=== PATIENT | male | born 1970 | race Caucasian/White ===

== ENCOUNTER 2017-01-01 10:46 | Observation (INO) | payer OTHER ==
[2016-12-28 21:27] LABS: BASOPHILS 0.5 %; BASOPHILS ABSOLUTE 0.03 10/3/uL (0.0-0.16); EOSINOPHILS 3.5 %; EOSINOPHILS ABSOLUTE 0.21 10/3/uL (0.0-0.53); HEMATOCRIT 44.4 % (40.0-51.0); HEMOGLOBIN 15.3 g/dL (13.6-17.8); IMMATURE GRANULOCYTES 0.2 %; IMMATURE GRANULOCYTES ABSOLUTE 0.01 10/3/uL (0.0-0.11); LYMPHOCYTES 25.2 %; MEAN CORPUS HGB CONC 34.5 g/dL (32.0-36.0); MEAN CORPUSCULAR HEMOGLOB 30.8 pg (26.0-34.0); MEAN CORPUSCULAR VOLUME 89.3 fL (80-100); MEAN PLATELET VOLUME 10.7 fL (9.2-13.0); MONOCYTES 9.2 %; MONOCYTES ABSOLUTE 0.55 10/3/uL (0.21-1.20); NEUTROPHILS 61.4 %; NEUTROPHILS ABSOLUTE 3.66 10/3/uL (2.02-8.40); PLATELET COUNT 235 10/3/uL (150-400); RED CELL COUNT 4.97 10/6/uL (4.7-6.1)
[2016-12-28 21:32] LABS: MANUAL DIFF NO %
[2016-12-28 21:34] LABS: PARTIAL THROMBO TIME 28.5 SEC (22.5-37.2)
[2016-12-28 21:36] LABS: BUN (BLOOD UREA NITROGEN) 14 MG/DL (6-23); CALCIUM, SERUM 8.5 MG/DL (8.5-10.4); CHLORIDE, SERUM 108 MMOL/L (96-112); CO2 (CARBON DIOXIDE) 28 MMOL/L (24-34); CREATININE 1.09 MG/DL (0.70-1.30); GFR AFRICAN AMERICAN 93 ML/MIN (>=60); GFR NON AFRICAN AMERICAN 80 ML/MIN (>=60); GLUCOSE, SERUM 107 MG/DL (60-99); POTASSIUM, SERUM 4.4 MMOL/L (3.5-5.3); SODIUM, SERUM 142 MMOL/L (135-148)
--- NOTE | ~2017-01-01 | OP ---
Record Of Operation [facility] [address] [place]. [address] NAME: CHALINO LEARY SR : 68 STATUS : DIS Sheryl PAT#: [id number] AGE: 46 ADM/REG DATE : 01/01/17 MR#: [id number] REPORT SERV DATE: 01/17/17 DICTATED BY: KRISTEN MOSER JR. DATE: 01/17/17 REPORT STATUS : Draft TRANSCRIBED BY: ADRIANA DATE: 01/17/17 DATE OF PROCEDURE: 01/01/2017 PREOPERATIVE DIAGNOSIS: Metastatic papillary thyroid cancer. POSTOPERATIVE DIAGNOSIS: Metastatic papillary thyroid cancer. NAME OF OPERATION: Total thyroidectomy with resection of substernal metastatic left paratracheal lymph node. SURGEON: Kristen Moser M.D. PARANORMAL INVESTIGATOR: Renan Anguiano M.D. RESIDENT SURGEON: Keenan Kelley M.D. ANESTHESIA: General endotracheal. FINDINGS: The patient had a metastatic papillary thyroid cancer, which was involving a large metastatic nodule in the left paratracheal region just in the thoracic inlet. The total thyroidectomy was performed by Dr. Renan Anguiano. The substernal component of the metastatic tumor was resected by myself. The metastatic nodule was involving the left paratracheal tissues including the inferior portion close to the innominate artery. It was resected in its entirety. DETAILS OF OPERATION: After completion of the thyroidectomy through the transcervical incision, we dissected down into the substernal space. There was no obvious tumor mass in the left paratracheal region. The Harmonic scalpel with blunt and sharp dissection was utilized to excise this mass from the space. It was inferiorly touching the innominate artery but was not invading it. We were able to preserve the left recurrent laryngeal nerve. There was no vascular injury. It did not require a sternal split. There was no other abnormal masses or tissues. Thyroidectomy incision and transcervical incision was closed by Dr. Renan Anguiano. The patient returned back to recovery room in stable condition. KO/ADRIANA Kristen Moser Jr., M.D. / [id number] CC: Renan Anguiano M.D. Get Cortez M.D.
--- NOTE | ~2017-01-01 | OP ---
Record Of Operation [facility] [address] [place]. [address] NAME: CHALINO LEARY SR : 69 STATUS : ADM IN PAT#: [id number] AGE: 46 ADM/REG DATE : 01/01/17 MR#: [id number] REPORT SERV DATE: 01/02/17 DICTATED BY: NEMESIO HESTER DATE: 01/01/17 REPORT STATUS : Draft TRANSCRIBED BY: MODL DATE: 01/01/17 DATE OF PROCEDURE: 01/01/2017 PREOPERATIVE DIAGNOSIS: Papillary thyroid carcinoma with mediastinal mass. POSTOPERATIVE DIAGNOSIS: Papillary thyroid carcinoma with mediastinal mass. PROCEDURES PERFORMED: 1. Total thyroidectomy. 2. Central compartment lymph node dissection. 3. Right inferior parathyroid autotransplantation. SURGEON: Nemesio Hester M.D. JUNIOR [employer]OL PRINCIPAL: Redd Moser. SECOND ECONOMIC RESEARCH ASSISTANT: Tarsha Rick M.D. ANESTHESIA: General. COMPLICATIONS: None. CONDITION: Stable to recovery. INDICATIONS: A 46-year-old male with papillary thyroid carcinoma diagnosed by fine needle aspiration biopsy, Dr. Florentino Peñaloza. Follow up CT scan of the neck revealed a mediastinal mass associated with the papillary thyroid cancer. The patient was referred to Dr. Moser for consideration of possible sternotomy for mediastinal node dissection. The risks, benefits, and alternatives of surgery, and all were explained and he agreed. PROCEDURE IN DETAIL: The patient was identified in preoperative holding, taken back to the operating room, and placed supine on the operating room table. General anesthesia was established. A time-out was called, the patient and procedure were confirmed. His preexisting skin crease in the anterior neck was marked with a surgical ink pen and infiltrated subcutaneously with 1% lidocaine with 1:100,000 epinephrine. The patient had been intubated with a nerve integrity monitoring system endotracheal tube, and the anterior tap test was positive. He was prepped and draped in a standard fashion for the operation. Initially, a 2.5 x loupe magnification headlight illumination was used throughout the case. A 15 blade was used to make the skin incision. Bovie cautery was used to divide the platysma and elevate subplatysmal flaps. The strap muscles were divided in the midline from the thyroid notch to the sternal notch, and the strap muscles were mobilized off the thyroid gland. There was a 1.5 to 1 to 2 cm thyroid nodule at the junction of the left lobe and isthmus that was firm, but without clear extracapsular extension. It was confined to the thyroid isthmus. The thyroidectomy was then performed by establishing the cricothyroid space, dissecting along the left upper pole of the thyroid gland, isolating the superior pole vessels. These were further mobilized and exposed by placing a Agustín clamp on the Record Of Operation [address] [place] [address] NAME: CAHLINO LEARY : 68 STATUS : ADM IN PAT#: [id number] AGE: 46 ADM/REG DATE : 01/01/17 MR#: [id number] REPORT SERV DATE: 01/02/17 DICTATED BY: NEMESIO HESTER DATE: 01/01/17 REPORT STATUS : Draft TRANSCRIBED BY: ADRIANA DATE: 01/01/17 left upper pole. It was retracted inferomedially. The upper pole vessels were clamped with a small hemoclip and Harmonic scalpel on the thyroid side, and the gland was rotated out of the visceral compartment. The middle thyroid vein was clipped with a small hemoclip. Another vein exiting the strap muscle was tied off with a 3-0 silk tie. The gland was rotated out of the visceral compartment. The recurrent laryngeal nerve was identified coursing in the tracheoesophageal groove just deep to the inferior thyroid artery. This was confirmed with nerve integrity monitoring endotracheal tube probe. The inferior thyroid artery, and several other small vessels were ligated with a small hemoclip and Harmonic scalpel. The gland was rotated off the trachea. Pardo's ligament was taken down with a combination of bipolar cautery and Harmonic scalpel. The left upper parathyroid was identified and preserved, and dissected off the gland, during this portion of the case the left inferior parathyroid was not directly identified. The gland was rotated off the Pardo's ligament and the anterior trachea and transected at the right lobe and isthmus, and it was sent for frozen section, his left lobe and isthmus nodule. Frozen section confirmed papillary thyroid carcinoma. Attention was then turned to the right thyroid lobe which was normal to small sized gland that as it was on the left side. The dissection of the right gland was done in a similar fashion by developing the cricothyroid space on the right-hand side. A medium hemoclip was used to double clip the upper pole vessels which were larger on the right side. The Harmonic scalp was used on the thyroid side and the gland was rotated out of the visceral compartment securing the middle thyroid vessels with hemoclips and Harmonic scalpel, and then identifying the recurrent laryngeal nerve in the tracheoesophageal groove. Again the inferior thyroid artery was coursing over the nerve and it was ligated with a small hemoclip and Harmonic scalpel. The gland was taken off the Pardo's ligament using bipolar cautery and Metzenbaum scissors, and off anterior tracheal rings and Pardo's ligament. This was passed off as right thyroid lobe. We then turned our attention to the mediastinal mass that was on the left side. The left recurrent laryngeal nerve was skeletonized down into the upper mediastinum. The left upper parathyroid gland was preserved. There was a right parathyroid gland on the inferior aspect that was identified partially within the gland and it was sent for frozen section, it was morselized and implanted at the end of the case in the right sternohyoid muscle and stitched with a blue Prolene suture. The paratracheal lymph node dissection was performed on the right by skeletonizing the carotid artery, recurrent laryngeal nerve, dissecting the lymphatic area tissue from a lateral to medial direction over the carotid and the recurrent laryngeal nerve and trachea. We used the common carotid on the right along with the innominate artery to lead us to the inferior border of the left mediastinal mass. Dr. Redd Moser scrubbed in and was the first line production supervisor in assisting with the mediastinal dissection as this was adherent to the soft tissues, adjacent to the innominate arteries and vein. During this portion of dissection we put a Agustín clamp on the mediastinal mass and used a combination of bipolar cautery and Harmonic scalpel, and hemostat dissection to mobilize this mass out of the inferior aspect of the mediastinal left thyroid compartment. The specimen was sent to the central compartment dissection, and this included the bilateral paratracheal lymph nodes and the central compartment. The wound was irrigated. Bipolar cautery was used for hemostasis. The snapshot tracing were made of the right and left recurrent laryngeal nerves which both stimulated at the end of the case. The right and left superior parathyroids were intact. Record Of Operation [facility] [address] [facility] [place]. [place] [id number] NAME: CHALINO LEARY : 68 STATUS : ADM IN PAT#: [id number] AGE: 46 ADM/REG DATE : 01/01/17 MR#: [id number] REPORT SERV DATE: 01/02/17 DICTATED BY: NEMESIO HESTER DATE: 01/01/17 REPORT STATUS : Draft TRANSCRIBED BY: MODL DATE: 01/01/17 We did morselize the right inferior parathyroid and replace it in the strap muscle and tagged with a 3-0 Prolene suture. A 10-[place] round fully perforated drain was placed and secured with a 3-0 Vicryl suture. The strap muscles were reapproximated in the midline with 3-0 Vicryl suture. The platysma was reapproximated with 3-0 Vicryl suture and in a running subcuticular 5-0 absorbable suture was placed followed by Steri-Strips. Preoperative PTH was 70, postoperative PTH was 42. The patient was extubated uneventfully, taken to recovery in stable condition. There were no complications. /MODL Nemesio Hester M.D. / [id number] CC: Nemesio Hester M.D.
[~2017-01-01 10:46] MED LIST: ATEN25 PO; PRIN20 PO; SYN.05 PO
[2017-01-01 13:50] LABS: PTH (INTRAOPERATIVE) 75.7 PG/ML (10.0-65.0); PTH TAT 0 Hrs 19 Mins
[2017-01-01 17:20] LABS: PTH (INTRAOPERATIVE) 49.2 PG/ML (10.0-65.0)
[2017-01-02 04:10] LABS: CALCIUM, SERUM 8.4 MG/DL (8.5-10.4)
[2017-01-02] MEDS ORDERED: NORCO1 TA1 PO (10:57)
[2017-01-02] MEDS ORDERED: ROCALTROL 0.0.25 MCG PO (10:58)
[2017-01-02] MEDS ORDERED: CALTRAT600 PO (10:58)
[2017-01-02] MEDS ORDERED: SYNTHROID200 MCG PO (10:59)
== END 2017-01-02 12:09 | disposition home or self-care (01) ==
LOC: SDC/OF 10:46 → 4SO 19:13
PROVIDERS: Specialist
PROC: 0GSN0ZZ Reposition Right Inferior Parathyroid Gland, Open Approach (ICD-10-PCS; 2017-01-01)
PROC: 07B20ZX Excision of Left Neck Lymphatic, Open Approach, Diagnostic (ICD-10-PCS; 2017-01-01)
PROC: 07B10ZX Excision of Right Neck Lymphatic, Open Approach, Diagnostic (ICD-10-PCS; 2017-01-01)
PROC: 0GTK0ZZ Resection of Thyroid Gland, Open Approach (ICD-10-PCS; principal; 2017-01-01 12:45)
DX: C73 Malignant neoplasm of thyroid gland (principal); I10 Essential (primary) hypertension; J40 Bronchitis, not specified as acute or chronic; Z79.899 Other long term (current) drug therapy; Z88.1 Allergy status to other antibiotic agents; Z82.49 Family history of ischemic heart disease and other diseases of the circulatory system; Z90.49 Acquired absence of other specified parts of digestive tract
CPT/HCPCS: 36415; 71020-PO; 80048; 82310; 82330; 83735; 83970; 85025; 85730; 86850; 86900; 86901; 88305; 88307; 88331; 93005; 96374; 96375; 96376; A9270-GY; G0378; J0636; J0690; J2250; J2270; J2405; J2550; J2710; J3010